=== PATIENT | female | born 1995 ===

== ENCOUNTER 2017-07-30 14:48 | Emergency (ER) | payer OTHER, SELFPAY ==
[2017-07-30 16:27] LABS: #Lymphocytes 1.3 thou/uL (1.20-3.40); #Monocytes 0.7 thou/uL (0.11-0.59); #Neutrophils 4.7 thou/uL (1.40-6.50); %Basophils 0.4 % (0.0-1.0); %Eosinophils 0.5 % (0.0-10.0); %Lymphocytes 19.5 % (28.0-48.0); %Monocytes 10.2 % (0.0-4.0); %Neutrophils 69.4 % (31.0-61.0); Mean Corpuscular HGB CONC 32.1 g/dL (32.0-36.0); Mean Corpuscular Hemoglobin 27.4 pg (25.0-35.0); Mean Corpuscular Volume 85.3 fl (77.0-87.0); Mean Platelet Volume 6.7 fL (7.4-10.4); Platelet Count 316 thou/uL (130-400); RBC Distribution Width 13.9 % (11.5-14.5); Red Blood Cell (RBC) Count 4.01 mill/uL (4.00-5.20); White Blood Cell (WBC) Count 6.8 thou/uL (4.8-10.8)
[2017-07-30 16:39] LABS: BHCG - Serum Negative (NEGATIVE); Pregs Control Background? CLEAR/WHITE (CLR/WHITE); Pregs Control Bar Appear? YES (CONTROL BAR)
[2017-07-30 16:49] LABS: ALT (SGPT) 12 U/L (8-55); AST (SGOT) 19 U/L (5-34); Albumin 4.4 g/dL (3.5-5.0); Alkaline Phosphatase 46 U/L (40-150); Anion Gap 10 mmol/L (10-20); BUN (Urea Nitrogen) 8 mg/dL (7.0-18.7); Bilirubin, Total 0.4 mg/dL (0.2-1.2); Calc. Creatinine Clearance 0 mL/min (70-130); Carbon Dioxide 25 mmol/L (22-29); Chloride 106 mmol/L (98-107); Estimated GFR-MDRD Greater than 90; Globulin 3.2 g/dL (2.4-3.5); Glucose 85 mg/dL (70-105); Potassium 3.4 mmol/L (3.5-5.1); Protein, Total 7.6 g/dL (6.0-8.3); Sodium 138 mmol/L (136-145)
[2017-07-30 16:54] LABS: CKMB 1.5 ng/mL (0-6.6); Troponin I Less than 0.010 ng/mL (< 0.028)
[2017-07-30] MEDS ORDERED: ISOVUE-370 76%-LOCM 1 ML ONE (17:22)
--- NOTE | 2017-07-30 20:28 | CT ---
CTA CHEST WITH 3D VOLUME RENDERING 07/30/17 CLINICAL HISTORY: Cardiac palpitations. Irregular EKG. FINDINGS: No obvious filling defect of pulmonary trunk or main pulmonary arteries. There is incomplete assessme nt of the segmental and subsegmental pulmonary arterial branches due to heterogeneity of contrast shereen us in these regions which could potentially obscure small distal emboli. There is no consolidation, e ffusion or pneumothorax evident. IMPRESSION: No acute pulmonary embolus. POS: KIRSTEN
--- NOTE | 2017-08-19 15:12 | EKG ---
Test Reason : Blood Pressure : / mmHG Vent. Rate : 097 BPM Atrial Rate : 097 BPM P-R Int : 138 ms QRS Dur : 074 ms QT Int : 346 ms P-R-T Axes : 065 088 055 degrees QTc Int : 439 ms Normal sinus rhythm Low voltage QRS Borderline ECG Confirmed by KAYLIE MUJICA ([id number]), tape editor VERITO FLORES ([id number]) on 08/19/2017 3:12:09 PM Referred By: Confirmed By:KAYLIE MUJICA
== END 2017-07-30 20:40 | disposition home or self-care (01) ==
LOC: ERS 14:48
DX: R00.2 Palpitations (principal); R55 Syncope and collapse; F43.9 Reaction to severe stress, unspecified; F41.9 Anxiety disorder, unspecified; F32.9 Major depressive disorder, single episode, unspecified; F43.10 Post-traumatic stress disorder, unspecified; F41.0 Panic disorder [episodic paroxysmal anxiety]; Z79.899 Other long term (current) drug therapy
CPT/HCPCS: 36415; 71275; 80053; 82553; 84484; 84703; 85025; 85379; 93005; 96360